=== PATIENT | male | born 1970 | race Caucasian/White ===

== ENCOUNTER 2018-08-24 13:03 | Emergency (ER) | payer SELFPAY ==
[~2018-08-24] VITALS: Ht 177.8 cm; Wt 86.4 kg
[2018-08-24 13:24] VITALS: BP 143/88; PULSE 89; RESP 18; Ht 177.8 cm; Wt 86.4 kg
== END 2018-08-24 14:52 | disposition left against medical advice (07) ==
LOC: FTE 13:03
DX: Z53.21 Procedure and treatment not carried out due to patient leaving prior to being seen by health care provider (principal)